=== PATIENT | female | born 2000 | race Caucasian/White ===

== ENCOUNTER 2018-01-28 21:41 | Emergency (ER) | payer OTHER ==
[~2018-01-28] VITALS: Ht 165.1 cm; Wt 98.1 kg
[2018-01-28 21:44] VITALS: TEMP 36.7; Ht 165.1 cm; Wt 98.1 kg
[2018-01-28] MEDS ORDERED: LIDOCAINE HCL 2% VISC SOLN 20 ML UDC PO STA (22:05)
[2018-01-28] MEDS ORDERED: ALUMINUM/MAGNESIUM SUSP 30 ML UDC PO STA (22:05)
[2018-01-28] MEDS ORDERED: SUCRALFATE 1 GM/10 ML UDC PO STA (22:36)
[2018-01-28] MEDS ORDERED: PANTOprazole SOD 40 MG TAB PO STA (23:39)
[2018-01-28] MEDS ORDERED: PANT40TA PO (23:44)
[2018-01-28 23:55] VITALS: BP 144/91; PULSE 69; O2SAT 98
--- NOTE | 2018-01-29 05:26 | EMERGENCY ROOM VISIT NOTE ---
History First contact with patient: 22:00 Chief Complaint: THROAT PAIN/INJURY Stated Complaint: PILL STUCK IN THE BACK OF MY THROAT-PAIN History of Present Illness The patient is a 17 year old female who presents to the Emergency Room with complaints of throat discomfort all day after taking an Aleve and Motrin this morning for her headache. Patient states she took the pills with very small amount of water. No history of esophagitis in the past. Patient states she has had lunch and dinner and been drinking all throughout the day without difficulties. Patient states she feels uncomfortable with the feeling in her throat. Patient denies chest pain, dyspnea, fever, chills, nausea, vomiting, diarrhea, inability to swallow. Review of Systems An 10 system review of systems was completed with positives and pertinent negatives listed in the HPI. Past Medical/Surgical History None Social History Smoking Status: Never Smoker Smokeless Tobacco Use: No Drug Use: none Marital Status: single Occupation Status: [employer] student Current/Historical Medications Scheduled Pantoprazole (Protonix), 40 MG PO DAILY Physical Exam Vital Signs Date Time Temp Pulse Resp B/P (MAP) Pulse Ox O2 Delivery O2 Flow Rate FiO2 01/28/18 23:55 69 20 144/91 98 01/28/18 23:19 74 18 129/84 98 Room Air 01/28/18 21:44 36.7 79 18 154/96 99 Room Air Physical Exam VITALS: Vitals are noted on the nurse's note and reviewed by myself. Vital signs stable. GENERAL: Pleasant female maintaining her own secretions, in no acute distress, nondiaphoretic, well-developed well-nourished. SKIN: The skin was without rashes, erythema, edema, or bruising. There is no tenting of the skin. Capillary reflex less than 2 seconds. HEAD: Normocephalic atraumatic. EARS: External auditory canals clear, tympanic membranes pearly [place]on without erythema or effusion bilaterally. EYES: Pupils equal round and reactive to light and accommodation. Conjunctivae without injection, sclerae without icterus. Extraocular movements intact. NOSE: Patent, turbinates without inflammation or discharge. MOUTH: Mucous membranes moist. Pharynx without erythema or exudate. Uvula midline. Airway patent. Tongue does not deviate. NECK: Supple without nuchal rigidity. No lymphadenopathy. No thyromegaly. Cervical spine is nontender. No JVD. HEART: Regular rate and rhythm without murmurs gallops or rubs. LUNGS: Clear to auscultation bilaterally without wheezes, rales or rhonchi. No retractions or accessory muscle use. ABDOMEN: Positive bowel sounds x 4. Normal tympanic percussion. Soft, nontender, without masses or organomegaly. Briceno sign negative. No guarding or rebound tenderness. No CVA tenderness MUSCULOSKELETAL: No muscle atrophy, erythema, or edema noted. NEURO: Patient was alert and oriented to person place and time. Normal sensation to light and sharp touch. No focal neurological deficits. Medical Decision & Procedures Medications Administered Medications (Trade) Dose Ordered Sig/Juan Francisco Route Start Time Stop Time Status Last Admin Dose Admin Lidocaine HCl (Viscous Lidocaine 2% Soln) 10 ml NOW STAT PO 01/28/18 22:05 01/28/18 22:06 DC 01/28/18 22:15 10 ML Al Hydroxide/Mg Hydroxide (Maalox Susp) 30 ml NOW STAT PO 01/28/18 22:05 01/28/18 22:06 DC 01/28/18 22:15 30 ML Sucralfate (Carafate Susp) 1 gm NOW STAT PO 01/28/18 22:36 01/28/18 22:37 DC 01/28/18 23:17 1 GM Pantoprazole Sodium (Protonix Tab) 40 mg NOW STAT PO 01/28/18 23:39 01/28/18 23:40 DC 01/28/18 23:52 40 MG ED Course Prior records reviewed and summarized as above. Triage Nursing notes reviewed. The patient's history was concerning for throat discomfort after swallowing NSAIDs Differential diagnosis: Etiologies such as pill induced esophagitis, esophagitis, GERD, obstruction, as well as others were entertained.. Physical examination: The physical examination was consistent with pill induced esophagitis ER treatment provided: GI cocktail, Carafate, Protonix On reassessment the patient felt better. Diagnostics interpreted by me: Deferred This appears to be esophagitis most likely from taking NSAIDs this morning. Patient felt better after being medicated as above. Patient was tolerating fluids. She is able to eat and drink throughout the day without difficulties. She is advised to take all medications standing up with a full glass of water. She was advised to take the Protonix as directed and to follow-up with health services or GI symptoms persist or here in the ER sooner for difficulty swallowing, chest pain, vomiting, black or blood in stool, worsening signs or symptoms or as needed. By the evaluation outlined above emergent etiologies such as obstruction, infection, as well as others were deemed relatively unlikely. The pt informed about the findings as listed above. All questions were answered and pleased with the treatment. Return instructions were outlined and the patient was discharged in stable condition. Outpatient prescription management: Protonix Referral: The patient was referred back to primary care physician or GI for follow-up in 2 to 3 days for a recheck of the current condition. Case reviewed with my attending The chart was completed utilizing [employer] Speech voice recognition software. Grammatical errors, random word insertions, pronoun errors, and incomplete sentences are an occassional consequence of this system due to software limitations, ambient noise, and hardware issues. Any formal questions or concerns about the content, text, or information contained within the body of this dictation should be directly addressed to the physician library technical assistant for clarification. Medical Decision As above Medication Reconcilliation Current Medication List: was personally reviewed by me Blood Pressure Screening Patient's blood pressure: Normal blood pressure Impression Primary Impression: Pill esophagitis Departure Information Dispostion Home / Self-Care Condition GOOD Prescriptions Pantoprazole (Protonix) 40 Mg Tab 40 MG PO DAILY for 14 Days, #14 TAB Prov: Beba Farfan ., ERICK 01/28/18 Referrals Endy Robertson M.D. Forms WORK / SCHOOL INSTRUCTIONS, HOME CARE DOCUMENTATION FORM, Days off work : 1 Days off school: 1 School Instructions, IMPORTANT VISIT INFORMATION Patient Instructions Esophagitis, [facility] Additional Instructions Take all your medicine with a glass of water and stand up when swallowing the pill and drinking the water. Protonix 40 m tablet daily for next 2 weeks. Take this on an empty stomach. Try Maalox for breakthrough symptoms. Avoid large meals. Avoid acidic foods. Rest and drink plenty of fluids as tolerated. Continue current medications. Avoid strenuous activities and anything that worsens your pain. Resume normal activities once your symptoms resolve. Return to the ER immediately for worsening or persistent chest pain, abdominal pain, black or blood in your stools, vomiting, fevers, chest pains, difficulty breathing, worsening of your condition, or as needed. Follow up with your primary physician and/or gastroenterology in 2-3 days for a recheck of your current condition.
== END 2018-01-28 23:56 | disposition home or self-care (01) ==
LOC: C.EDB 21:43
DX: K20.8 Other esophagitis (principal); Z79.899 Other long term (current) drug therapy